=== PATIENT | male | born 1975 | race Caucasian/White ===

== ENCOUNTER 2016-06-15 08:08 | Emergency (ER) | payer MEDICAID, OTHER ==
--- NOTE | 2016-06-15 08:43 | EDPHY ---
H & P Time Seen by Provider: 06/15/16 08:32 HPI/ROS: Chief complaint. Sore area in armpit, fever HPI. 40-year-old male redness right armpit for 3 days. He felt initially a small lump that has gotten larger. He did do some some wheezing. Today however he increased pain, swelling and redness radiating to the anterior chest. Fever at home to 103 degrees. No other source of fever. No similar symptoms previously ROS Constitutional. Fever Eyes. no problems with vision ENT. no sore throat, no nasal drainage Cardiovascular. no chest pain Respiratory. no shortness of breath, no cough Abdominal. no abdominal pain, no nausea/vomiting, no diarrhea . no problems urinating MS. no calf pain/swelling, no neck/back pain, no joint pain Skin. Lump right axilla now larger and redness to Skin anterior chest Lymph. no swollen glands Neuro. no headache, no dizziness, no difficulty walking or with speech Past Medical/Surgical History: Denies past medical history Social History: , daily smoker, no alcohol Smoking Status: Current every day smoker Physical Exam: General Appearance: Alert well-developed male mild distress vital signs are stable Eyes: Pupils equal and round no pallor or injection. ENT, Mouth: Mucous membranes are moist. Respiratory: There are no retractions, lungs are clear to auscultation. Cardiovascular: Regular rate and rhythm. Gastrointestinal: Abdomen is soft and nontender, no masses, bowel sounds normal. Neurological: Awake and alert, sensory and motor exams grossly normal. Skin: 3 x 4 cm indurated area right axilla that feels like abscess. Erythema stretching to the right nipple area on the right chest Musculoskeletal: Neck is supple nontender. Extremities symmetrical, full range of motion. Psychiatric: Patient is oriented X 3, there is no agitation. Constitutional: Initial Vital Signs Temperature (C) 37.8 C 06/15/16 08:23 Heart Rate 83 06/15/16 08:23 Respiratory Rate 20 06/15/16 08:23 Blood Pressure 126/81 H 06/15/16 08:23 O2 Sat (%) 96 06/15/16 08:23 O2 Delivery Mode Room Air Allergies/Adverse Reactions: No Known Allergies Allergy (Unverified 06/15/16 08:22) Home Medications: Medication Instructions Recorded Cephalexin [Keflex (*)] 500 mg PO TID #21 cap 06/15/16 Sulfamethox/Tmp 800/160 mg 1 tab PO BID #14 tab 06/15/16 [Bactrim Ds] oxyCODONE/APAP 5/325 [Percocet 1 tab PO Q4-6PRN PRN #14 tab 06/15/16 5/325] Medical Decision Making Procedures: IV fentanyl. IV vancomycin Procedure incision and drainage. 1% lidocaine with epinephrine is infiltrated into the area of the patient's axilla. Incision with 11 blade is performed with purulent drainage expressed. The cavity is probed to break up loculations and then irrigated with saline. Patient tolerates the procedure well ED Course/Re-evaluation: Re-evaluation patient is stable feels better. Patient, his , and I discussed treatment plan including criteria for return importance of follow-up and further evaluation. They expressed understanding and agreement Differential Diagnosis: Subcutaneous abscess likely MR KING. Now treated with IV vancomycin and will be treated with Keflex and Bactrim. Patient is otherwise stable. No evidence for sepsis - Data Points Medications Given: Discontinued Medications Fentanyl (Sublimaze) 200 mcg IVP EDNOW ONE Stop: 06/15/16 08:49 Last Admin: 06/15/16 09:43 Dose: 200 mcg Vancomycin/Sodium Chloride (Vancomycin 1 Gm (Premix)) 250 mls @ 250 mls/hr IV EDNOW ONE PRN Reason: Protocol Stop: 06/15/16 09:47 Last Admin: 06/15/16 09:44 Dose: 250 mls Departure - Departure Disposition: Home, Routine, Self-Care Clinical Impression: Abscess Condition: Good Instructions: Abscess (ED) Additional Instructions: Warm compresses to red area. No squeezing. Cephalexin and Bactrim as antibiotics. Percocet for pain ibuprofen 600 mg in addition to the Percocet for inflammation. Return for worsening symptoms. Recheck in 2 days without fail Referrals: NONE *PRIMARY CARE P,. [Primary Care Provider] - As per Instructions [facility] [Outside] - 1-2 days without fail Prescriptions: Cephalexin [Keflex (*)] 500 mg PO TID #21 cap oxyCODONE/APAP 5/325 [Percocet 5/325] 1 tab PO Q4-6PRN PRN #14 tab PRN Reason: Pain, Moderate Sulfamethox/Tmp 800/160 mg [Bactrim Ds] 1 tab PO BID #14 tab
[2016-06-15] MEDS ORDERED: fentaNYL 100 MCG/2 ML INJ IVP ONE (08:48)
[2016-06-15] MEDS ORDERED: VANCOMYCIN HCL/NORMAL SALINE 250 ML IV ONE (08:48)
[2016-06-15 10:50] VITALS: BP 131/78; PULSE 75; RESP 14; TEMP 98.6; O2SAT 94
== END 2016-06-15 11:24 | disposition home or self-care (01) ==
PROC: 0H9BXZZ Drainage of Right Upper Arm Skin, External Approach (ICD-10-PCS; principal; 2016-06-15)
DX: L02.411 Cutaneous abscess of right axilla (principal); F17.200 Nicotine dependence, unspecified, uncomplicated
CPT/HCPCS: 96374; J3010; J3370